=== PATIENT | female | born 1985 | race Caucasian/White ===

== ENCOUNTER 2016-10-11 10:47 | Emergency (ER) | payer OTHER ==
[~2016-10-11] VITALS: Ht 160 cm; Wt 56.7 kg
[~2016-10-11 10:47] MED LIST: PREN-385 PO
[2016-10-11 11:09] VITALS: BP 128/78
--- NOTE | 2016-10-11 11:20 | NUR ---
PATIENT PRESENTS TO ED WITH C/O LEFT EYE IRRITAITON . PT STATES HER LEFT EYE HAS BEEN IRRITATED AND ITCHY FOR THE PAST MONTH AND IS GETTING WORSE. DENIES N/V/D; SKIN IS PINK/WARM/DRY; AAOX4 WITH EVEN AND STEADY GAIT; LUNGS CLEAR BL; HR EVEN AND REGULAR; PT DENIES ANY FEVER, CP, SOB, OR COUGH AT THIS TIME; PATIENT STATES PAIN OF 0/10 AT THIS TIME; VSS; PATIENT POSITIONED FOR COMFORT; HOB ELEVATED; BEDRAILS UP X2; BED DOWN. ER MD MADE AWARE OF PT STATUS.
--- NOTE | 2016-10-11 11:35 | NUR ---
PATIENT BEING EVALUATED BY THE DR AT BEDSIDE
[2016-10-11] MEDS ORDERED: FLUORESCEIN OPTH STRIP 1 MG OP ONE (11:40)
[2016-10-11] MEDS ORDERED: TETRACAINE 0.5% OPTH SOL 2 ML BTL OP ONE (11:40)
--- NOTE | 2016-10-11 11:54 | NUR ---
Dr. Garcia at bedside for eye exam.
--- NOTE | 2016-10-11 12:15 | NUR ---
Patient discharged with v/s stable. Written and verbal after care instructions given and explained. Patient alert, oriented and verbalized understanding of instructions. Ambulatory with steady gait. All questions addressed prior to discharge. ID band removed. Patient advised to follow up with PMD. Rx of ERYTHROMYCIN OPHTHALMIC OINTMENT given. Patient educated on indication of medication including possible reaction and side effects. Opportunity to ask questions provided and answered.
== END 2016-10-11 12:15 | disposition home or self-care (01) ==
LOC: MED 10:47
DX: H10.9 Unspecified conjunctivitis (principal); R03.0 Elevated blood-pressure reading, without diagnosis of hypertension; Z88.5 Allergy status to narcotic agent; Z88.0 Allergy status to penicillin
CPT/HCPCS: 99283